=== PATIENT | female | born 1950 | race Caucasian/White ===

== ENCOUNTER 2018-04-16 06:42 | Day surgery (SDC) ==
[2018-04-16] MEDS: BETADINE OPTH PREP OP PRN ×2 (07:05→08:10)
[2018-04-16] MEDS: TETRACAINE 0.5% UNIT-DOSE OP PRN ×2 (07:05→08:14)
[2018-04-16] MEDS: CYCLOGYL 2% OPTH OP PRN ×3 (07:06→07:16)
[2018-04-16] MEDS ORDERED: BRIMONIDINE TARTRATE 0.2% OPTH SOL OP PRN (07:13)
[2018-04-16] MEDS ORDERED: LIDOCAINE 1% 20 ML MDV ID STA (07:13)
[2018-04-16] MEDS ORDERED: ZOFRAN 4 MG/2 ML IVP ONE (07:13)
[2018-04-16] MEDS: DEX-MOXI-KETOR OPTH INJ 1/0.5/0.4 MG/ML IO ONE ×2 (08:14→08:28)
[2018-04-16] MEDS: BSS WITH EPINEPHRINE OP ONE ×2 (08:14→08:28)
[2018-04-16] MEDS: LIDOCAINE 1%/PHENYLEPHRINE 1.5% BSS (SURGERY) INTRAOCULA ONE ×2 (08:15→08:28)
[2018-04-16] MEDS ORDERED: VERSED ONE (08:15)
[2018-04-16] MEDS ORDERED: SUBLIMAZE ONE (08:15)
[2018-04-16 12:31] VITALS: TEMP 98.3
[2018-04-18 11:03] VITALS: BP 128/56
== END 2018-04-16 09:30 | disposition home or self-care (01) ==
LOC: SURG 06:42
PROVIDERS: ATTEND Ophthalmology
DX: H25.813 Combined forms of age-related cataract, bilateral (principal)

== ENCOUNTER 2018-04-30 07:32 | Day surgery (SDC) ==
[2018-04-30] MEDS: TETRACAINE 0.5% UNIT-DOSE OP PRN ×2 (08:42→09:40)
[2018-04-30] MEDS: BETADINE OPTH PREP OP PRN ×2 (08:42→09:40)
[2018-04-30] MEDS: CYCLOGYL 2% OPTH OP PRN ×3 (08:43→08:53)
[2018-04-30] MEDS ORDERED: BRIMONIDINE TARTRATE 0.2% OPTH SOL OP PRN (08:50)
[2018-04-30] MEDS ORDERED: ZOFRAN 4 MG/2 ML IVP ONE (08:50)
[2018-04-30] MEDS ORDERED: LIDOCAINE 1% 20 ML MDV ID STA (08:50)
[2018-04-30 08:53] VITALS: TEMP 97.8
[2018-04-30] MEDS: DEX-MOXI-KETOR OPTH INJ 1/0.5/0.4 MG/ML IO ONE ×2 (09:54→10:02)
[2018-04-30] MEDS: BSS WITH EPINEPHRINE OP ONE ×2 (09:54→10:02)
[2018-04-30] MEDS: LIDOCAINE 1%/PHENYLEPHRINE 1.5% BSS (SURGERY) INTRAOCULA ONE ×2 (09:55→10:02)
[2018-04-30] MEDS ORDERED: SUBLIMAZE ONE (10:00)
[2018-04-30] MEDS ORDERED: VERSED ONE (10:00)
[2018-05-02 13:48] VITALS: BP 124/57
== END 2018-04-30 10:45 | disposition home or self-care (01) ==
LOC: SURG 07:32
PROVIDERS: ATTEND Ophthalmology
DX: H25.813 Combined forms of age-related cataract, bilateral (principal)